=== PATIENT | female | born 1995 | race Caucasian/White ===

== ENCOUNTER 2017-06-02 01:02 | Emergency (ER) | payer SELFPAY ==
[~2017-06-02] VITALS: Ht 160 cm; Wt 79.4 kg
--- NOTE | 2017-06-02 01:10 | NUR ---
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
[2017-06-02] MEDS ORDERED: IV NS 0.9% 1,000 ML BAG IV ONE (01:30)
[2017-06-02] MEDS ORDERED: ONDANSETRON HCL/PF - ER 4 MG/2 ML VIAL IV ONE (01:30)
[2017-06-02] MEDS ORDERED: ACETAMINOPHEN 325 MG TABLET PO ONE (01:30)
[2017-06-02] MEDS ORDERED: ACETAMINOPHEN 325 MG TABLET ONE (01:31)
[2017-06-02] MEDS ORDERED: ONDANSETRON HCL/PF 4 MG/2 ML VIAL ONE (01:31)
--- NOTE | 2017-06-02 02:04 | NUR ---
URINE COLLECTED AND SENT TO LAB
[2017-06-02 02:12] LABS: APPEARANCE,URINE CLOUDY (CLEAR); BILIRUBIN,URINE NEGATIVE (NEGATIVE); BLOOD, URINE 3+ Ery/uL (NEGATIVE); COLOR,URINE YELLOW (YELLOW); KETONES,URINE 1+ (NEGATIVE); LEUKOCYTE ESTERASE ,URINE 1+ (NEGATIVE); NITRITE, URINE NEGATIVE (NEGATIVE); PH,URINE 5.5 (5.0-8.0); PROTEIN,URINE 1+ mg/dl (NEGATIVE); UGLUCOSE NEGATIVE (NEGATIVE); UROBILINOGEN,URINE 0.2 EU/dL (0.2)
[2017-06-02 02:18] LABS: BACTERIA,URINE Many /HPF (None Seen); RBC,URINE 81-100 /HPF (0-2); SQUAMOUS EPITHELIAL CELL,UR Many /HPF (None Seen); WBC,URINE 51-80 /HPF (0-3)
[2017-06-02] MEDS ORDERED: CEFUROXIME AXETIL 250 MG TABLET PO STA (02:23)
--- NOTE | 2017-06-02 02:42 | NUR ---
Patient discharged to home in stable condition. Written and verbal after care instructions given. Patient verbalizes understanding of instruction.IV removed. Catheter intact and site benign. Pressure and 4x4 applied to site. No bleeding noted.
[2017-06-02 02:45] VITALS: BP 124/76
== END 2017-06-02 02:45 | disposition home or self-care (01) ==
LOC: ER 01:05
DX: N12 Tubulo-interstitial nephritis, not specified as acute or chronic (principal)
CPT/HCPCS: 81000-TC; 84703-TC; 87086-TC; 87186-TC; A4606; J2405; J7030; Z7610